=== PATIENT | female | born 1950 | race African-American/Black ===

== ENCOUNTER 2019-07-13 18:49 | Emergency (ER) | payer SELFPAY ==
[~2019-07-13] VITALS: Ht 167.6 cm; Wt 90.0 kg
[2019-07-13 18:57] VITALS: BP 110/60
[2019-07-13] MEDS ORDERED: NOREPINEPHRINE 4MG/250ML PMX 250 ML IV ONE ×2 (19:04→19:30)
[2019-07-13] MEDS ORDERED: NOREPINEPHRINE IV ONE (19:04)
[2019-07-13] MEDS ORDERED: EPINEPHRINE 0.1MG/ML (1:10,000) 10ML SYR ONE (19:15)
[2019-07-13] MEDS ORDERED: DOPAMINE 400MG/250ML PREMIX 250 ML IV ONE ×2 (19:30→19:45)
[2019-07-13] MEDS ORDERED: SODIUM CHLORIDE 0.9% 1,000 ML IV ONE (20:00)
== END 2019-07-13 19:38 | disposition expired ==
LOC: ER 18:49
DX: I46.9 Cardiac arrest, cause unspecified (principal); J45.901 Unspecified asthma with (acute) exacerbation; I10 Essential (primary) hypertension; Z93.3 Colostomy status
CPT/HCPCS: 31500; 82962; 92950; 99285; J1265; J3490; J7030; Z7610; A4315